=== PATIENT | female | born 1995 | race Caucasian/White ===

== ENCOUNTER 2017-08-17 17:14 | Inpatient (IN) | payer OTHER ==
[2017-08-17 20:19] VITALS: BMI 24.2
--- NOTE | 2017-08-17 21:07 | HP ---
CIWA Score - CIWA Score Nausea/Vomitin Muscle Tremors: 2 Anxiety: 2 Agitation: 2 Paroxysmal Sweats: 2 Orientation: 1-Uncertain about Date Tacttile Disturbances: 0-None Auditory Disturbances: 0-None Visual Disturbances: 0-None Headache: 2-Mild CIWA-Ar Total Score: 13 Admission ROS S - HPI Chief Complaint: "I need help, I need to go to detox and I want to go to rehab" Allergies/Adverse Reactions: Allergies Allergy/AdvReac Type Severity Reaction Status Date / Time cortisone Allergy Severe Low Blood Verified 08/17/17 20:17 Pressure erythromycin base Allergy Severe Rash Verified 08/17/17 20:17 gluten Allergy Severe Verified 08/17/17 20:17 History of Present Illness: 22 yo with hx of cocaine, nicotine, heroin and alcohol dependence is here seeking. Currently on MMTP at [facility] on 60 mg, last medicated this morning. PMHX: Sjogren's Syndrome, asthma, celiac disease, anxiety, depression. Denies suicidal / homicidal ideation or suicide attempts. Last detox [facility] in [place] June 2017. Reports longest period of sobriety 1.5 years. Denies hx of seizures or over dose. Reports hx of blackouts, last episode at 19 yo. Exam Limitations: No Limitations - Ebola screening Have you been sick,other than usual withdrawal symptoms: No Do you have a fever: No - Review of Systems Constitutional: Chills, Unintentional Wgt. Loss (40 lbs in the past 6 months) EENT: reports: No Symptoms Reported Respiratory: reports: No Symptoms reported, Wheezing (at night) GI: reports: Constipated, Nausea, Poor Appetite, Poor Fluid Intake, Abdominal cramping : reports: No Symptoms Reported Musculoskeletal: reports: Back Pain, Joint Pain Integumentary: reports: No Symptoms Reported Neuro: reports: Headache, Weakness Endocrine: reports: Increased Thirst, Change in Weight Hematology: reports: No Symptoms Reported Psychiatric: reports: Orientated x3, Anxious Other Systems: Reviewed and Negative Patient History - Patient Medical History Hx Anemia: No Hx Asthma: Yes Hx Chronic Obstructive Pulmonary Disease (COPD): No Hx Cancer: No Hx Cardiac Disorders: No Hx Congestive Heart Failure: No Hx Hypertension: No Hx Hypercholesterolemia: No Hx Pacemaker: No HX Cerebrovascular Accident: No Hx Seizures: No Hx Dementia: No Hx Diabetes: No Hx Gastrointestinal Disorders: No Hx Genitourinary Disorders: No Hx Sexually Transmitted Disorders: No Hx Renal Disease (ESRD): No Hx Thyroid Disease: No Hx Human Immunodeficiency Virus (HIV): No (last tested 2016, negative ) Hx Hepatitis C: No Hx Depression: Yes Hx Suicide Attempt: No Hx Bipolar Disorder: No Hx Schizophrenia: No - Patient Surgical History Past Surgical History: Yes Hx Neurologic Surgery: No Hx Cataract Extraction: No Hx Cardiac Surgery: No Hx Lung Surgery: No Hx Breast Surgery: No Hx Breast Biopsy: No Hx Abdominal Surgery: No Hx Appendectomy: No Hx Cholecystectomy: No Hx Genitourinary Surgery: No Hx Section: No Hx Orthopedic Surgery: No Other Surgical History: toncillectomy Anesthesia Reaction: No - PPD History Previous Implant?: Yes Documented Results: Negative w/o proof PPD to be Administered?: Yes - Reproductive History Patient is a Female of Child Bearing Age (11 -55 yrs old): Yes - Smoking Cessation Smoking history: Current every day smoker Have you smoked in the past 12 months: Yes Aproximately how many cigarettes per day: 20 Hx Chewing Tobacco Use: No Initiated information on smoking cessation: Yes 'Breaking Loose' booklet given: 08/17/17 - Substance & Tx. History Hx Alcohol Use: Yes Hx Substance Use: Yes Substance Use Type: Alcohol, Cocaine, Heroin Hx Substance Use Treatment: Yes ([facility] June 2017.) - Substances Abused Alcohol Route: Oral Frequency: Daily Amount used: liquor- 2 pints Age of first use: 16 Date of Last Use: 08/16/17 Family Disease History - Family Disease History Family Disease History: Heart Disease: Father (alive, alcoholism, ND), Other: Father, Mother (alive, RA ) Admission Physical Exam BHS - Vital Signs Vital Signs: Vital Signs - 24 hr 08/17/17 20:15 Temperature 97.6 F Pulse Rate 94 H Respiratory 18 Rate Blood Pressure 113/60 - Physical General Appearance: Yes: Appropriately Dressed, Thin, Anxious HEENTM: Yes: EOMI, Hearing grossly Normal, Normal ENT Inspection, Normocephalic , Normal Voice, REYNA, Pharynx Normal, Tm's normal Respiratory: Yes: Chest Non-Tender, Lungs Clear, No Respiratory Distress, No Accessory Muscle Use, Wheezing Neck: Yes: No masses,lesions,Nodules, Trachea in good position Breast: Yes: Breast Exam Deferred Cardiology: Yes: Regular Rhythm, Regular Rate Abdominal: Yes: Normal Bowel Sounds, Non Tender, Flat, Soft Genitourinary: Yes: Within Normal Limits Back: Yes: Normal Inspection Musculoskeletal: Yes: full range of Motion, Gait Steady, Pelvis Stable, Back pain Extremities: Yes: Normal Capillary Refill, Normal Inspection, Normal Range of Motion, Non-Tender Neurological: Yes: powder nipper II-XII NML intact, Fully Oriented, Motor Strength 5/5, Depressed Affect Integumentary: Yes: Within Normal Limits, Normal Color, Warm, Moist Lymphatic: Yes: Within Normal Limits - Diagnostic (1) Depressed affect Current Visit: Yes Status: Acute (2) Alcohol dependence with withdrawal Current Visit: Yes Status: Acute Qualifiers: Complication of substance-induced condition: uncomplicated Qualified Code(s ): F10.230 - Alcohol dependence with withdrawal, uncomplicated (3) Celiac disease Current Visit: Yes Status: Chronic (4) Weight loss Current Visit: Yes Status: Acute (5) Methadone maintenance therapy patient Current Visit: Yes Status: Chronic Comment: Currently on 60 mg, dose pending verification (6) Cocaine dependence Current Visit: Yes Status: Acute Qualifiers: Substance use status: uncomplicated Qualified Code(s): F14.20 - Cocaine dependence, uncomplicated (7) Asthma Current Visit: Yes Status: Chronic Qualifiers: Asthma severity: moderate Asthma persistence: unspecified Asthma complication type: unspecified Qualified Code(s): J45.909 - Unspecified asthma , uncomplicated (8) Sjoegren syndrome Current Visit: Yes Status: Chronic Qualifiers: Sjogren's organ involvement: unspecified organ involvement Qualified Code(s ): M35.00 - Sicca syndrome, unspecified (9) Nicotine dependence Current Visit: Yes Status: Acute Qualifiers: Nicotine product type: cigarettes (10) Wheezing Current Visit: Yes Status: Acute Cleared for Admission S - Detox or Rehab [facility] Level of Care: Medically Managed Detox Regimen/Protocol: Librium [facility] Breath Alcohol Content Breath Alcohol Content: 0 Urine Pregancy Test - Result Urine Test Results: Negative- NO Line Present Urine Drug Screen - Results Drug Screen Negative: No Urine Drug Screen Results: ALEXA-Cocaine, OPI-Opiates, MTD-Methadone
[2017-08-17] MEDS ORDERED: MENTHOL/PHENOL 1 EACH UD MM PRN (21:19)
[2017-08-17] MEDS ORDERED: IBUPROFEN 400 MG TABLET (FP) PO PRN (21:19)
[2017-08-17] MEDS ORDERED: MAG HYDROX/AL HYDROX/SIMETH 30 ML UNIT-DOSE CUP PO PRN (21:19)
[2017-08-17] MEDS ORDERED: guaiFENesin/D-METHORPHAN HB 10 ML UNIT-DOSE CUPS PO PRN (21:19)
[2017-08-17] MEDS ORDERED: chlordiazePOXIDE HCL 25 MG CAPSULE PO ONE (21:19)
[2017-08-17] MEDS ORDERED: MAGNESIUM CITRATE 300 ML BOTTLE PO PRN (21:19)
[2017-08-17] MEDS ORDERED: ACETAMINOPHEN 325 MG TABLET (FP) PO PRN (21:19)
[2017-08-17] MEDS ORDERED: NICOTINE POLACRILEX 2 MG GUM BUC PRN (21:19)
[2017-08-17] MEDS ORDERED: P-EPHED 60MG/TRIPROLIDI 2.5MG TABLET PO PRN (21:19)
[2017-08-17] MEDS ORDERED: LOPERAMIDE HCL 2 MG CAPSULE PO PRN (21:19)
[2017-08-17] MEDS ORDERED: hydrOXYzine PAMOATE 50 MG CAPSULE (FP) PO PRN (21:19)
[2017-08-17] MEDS ORDERED: MAGNESIUM HYDROX 2400MG/30ML ORAL SUSPENSION 30 ML CUP PO PRN (21:19)
[2017-08-17] MEDS ORDERED: ALBUTEROL SO4 2.5/IPRATROPIUM 0.5 INH SOL 3 ML VIAL.NEB. NEB PRN (21:24)
[2017-08-17] MEDS ORDERED: ALBUTEROL SO4 18 GM HFA INHALER IH PRN (21:24)
[2017-08-17] MEDS: THIAMINE HCL 100 MG TABLET (FP) PO SCH (22:32)
[2017-08-17] MEDS: MELATONIN 5 MG TABLETS PO PRN (22:32)
[2017-08-17] MEDS: chlordiazePOXIDE HCL 25 MG CAPSULE PO SCH (22:32)
[2017-08-18] MEDS: chlordiazePOXIDE HCL 25 MG CAPSULE PO SCH ×4 (05:40→22:30)
[2017-08-18] MEDS ORDERED: METHADONE HCL 40 MG DISPERSABLE TABLET PO SCH (07:15)
[2017-08-18] MEDS ORDERED: METHADONE HCL 10 MG TABLET ONE (08:48)
[2017-08-18] MEDS ORDERED: METHADONE HCL 40 MG DISPERSABLE TABLET ONE (08:48)
[2017-08-18 08:51] LABS: URINE APPEARANCE TURBID; URINE BILIRUBIN NEGATIVE (<2.0 mg/dL); URINE BLOOD NEGATIVE (NEGATIVE); URINE COLOR YELLOW; URINE GLUCOSE (UA) NEGATIVE (NEGATIVE); URINE KETONE NEGATIVE (NEGATIVE); URINE LEUK ESTERASE NEGATIVE (NEGATIVE); URINE NITRITE NEGATIVE (NEGATIVE); URINE PROTEIN NEGATIVE (NEGATIVE)
[2017-08-18] MEDS: METHADONE 40 MG, METHADONE 30 MG PO SCH (08:51)
--- NOTE | 2017-08-18 10:30 | PN ---
S CIWA - CIWA Score Nausea/Vomitin Muscle Tremors: 3 Anxiety: 3 Agitation: 2 Paroxysmal Sweats: 1-Minimal Palms Moist Orientation: 0-Oriented Tacttile Disturbances: 1-Very Mild Itch/Numbness Auditory Disturbances: 1-Very Mild Visual Disturbances: 0-None Headache: 2-Mild CIWA-Ar Total Score: 16 BHS Progress Note (SOAP) Subjective: ALERT,IRRITABLE,ANXIOUS,INTERRUPTED SLEEP,PAIN IN THE BODY Objective: 08/18/17 10:33 Vital Signs Temperature 97.9 F 08/18/17 09:17 Pulse Rate 68 08/18/17 09:17 Respiratory Rate 20 08/18/17 09:17 Blood Pressure 124/53 08/18/17 09:17 O2 Sat by Pulse Oximetry (%) EKG NSR WITH SINUS ARRHYTHMIA NORMAL ECG QT 438/444 08/18/17 10:35 NO CHEST PAIN,NO SOB,NO DIZZINESS 08/18/17 10:35 Laboratory Last Values Urine Color Yellow 08/17/17 22:00 Urine Appearance Turbid 08/17/17 22:00 Urine pH 5.0 (5.0-8.0) 08/17/17 22:00 Ur Specific [place] 1.024 (1.001-1.035) 08/17/17 22:00 Urine Protein Negative (NEGATIVE) 08/17/17 22:00 Urine Glucose (UA) Negative (NEGATIVE) 08/17/17 22:00 Urine Ketones Negative (NEGATIVE) 08/17/17 22:00 Urine Blood Negative (NEGATIVE) 08/17/17 22:00 Urine Nitrite Negative (NEGATIVE) 08/17/17 22:00 Urine Bilirubin Negative (<2.0 mg/dL) 08/17/17 22:00 Urine Urobilinogen 2.0 mg/dL (0.2-1.0) H 08/17/17 22:00 Ur Leukocyte Esterase Negative (NEGATIVE) 08/17/17 22:00 LABS PENDING Assessment: 08/18/17 10:36 WITHDRAWAL SYMPTOM Plan: CONTINUE DETOX
--- NOTE | 2017-08-18 10:36 | CONSULT ---
[facility] Psychiatric Consult - Data Date of interview: 08/18/17 Admission source: [facility] Identifying data: This is 22 years old female, single, unemployed, living with boyfriend, with no psychiatric hospitalization hstory, is here seeking for detoxification, reportes withdrawal symptoms after abusing: ' Alcohol, Opioids, Cocaine, Cannabis and Nicotine Substance Abuse History: Smoking history: Current every day smoker. Have you smoked in the past 12 months: Yes. Aproximately how many cigarettes per day: 20. Hx Chewing Tobacco Use: No. Initiated information on smoking cessation: Yes. 'Breaking Loose' booklet given: 08/17/17. - Substance & Tx. History. Hx Alcohol Use: Yes. Hx Substance Use: Yes. Substance Use Type: Alcohol, Cocaine , Heroin. Hx Substance Use Treatment: Yes ([facility] in [place] June 2017.). - Substances Abused. Alcohol. Route: Oral. Frequency: Daily. Amount used: liquor- 2 pints. Age of first use: 16. Date of Last Use: 08/16/17. Urine Drug Screen Results: ALEXA-Cocaine, OPI-Opiates, MTD-Methadone Medical History: Patient reports Celiac disease history, Weight loss history, Sjoegren syndrom history, MMTP 60mg per day, Asthma Psychiatric History: Reports history of depression, no medications taking prior to admission. Denies suicidal,and homicidal history. Physical/Sexual Abuse/Trauma History: Denies Additional Comment: Urine Drug Screen Results: ALEXA-Cocaine, OPI-Opiates, MTD- Methadone. Observation. Detox Unit Care Protocol Mental Status Exam - Mental Status Exam Alert and Oriented to: Place, Person Cognitive Function: Fair Patient Appearance: Unkempt Mood: Apprehensive Affect: Mood Congruent Patient Behavior: Cooperative Speech Pattern: Appropriate Voice Loudness: Normal Thought Process: Goal Oriented Thought Disorder: Being Controlled Hallucinations: Denies Suicidal Ideation: Denies Homicidal Ideation: Denies Insight/Judgement: Fair Sleep: Difficulty falling asleep Appetite: Weight loss Muscle strength/Tone: Normal Gait/Station: Normal Additional Comments: Observation. Detox Unit Care Protocol Psychiatric Findings - Problem List ([place] 1, 2,3) (1) Opioid dependence Current Visit: Yes Status: Acute (2) Cannabis dependence Current Visit: Yes Status: Acute (3) Drug-induced mood disorder Current Visit: Yes Status: Suspected (4) Alcohol dependence with withdrawal Current Visit: Yes Status: Acute Qualifiers: Complication of substance-induced condition: uncomplicated Qualified Code(s ): F10.230 - Alcohol dependence with withdrawal, uncomplicated (5) Cocaine dependence Current Visit: Yes Status: Acute Qualifiers: Substance use status: uncomplicated Qualified Code(s): F14.20 - Cocaine dependence, uncomplicated (6) Nicotine dependence Current Visit: Yes Status: Acute Qualifiers: Nicotine product type: cigarettes (7) Weight loss Current Visit: Yes Status: Acute (8) Methadone maintenance therapy patient Current Visit: Yes Status: Chronic Comment: Currently on 60 mg, dose pending verification - Initial Treatment Plan Initial Treatment Plan: Observation. Detox Unit Care Protocol
[2017-08-18] MEDS: PRENATAL VITAMINS W/ FOLIC ACID TABLET (FP) PO SCH (10:38)
[2017-08-18] MEDS: NICOTINE 21 MG/24 HOURS TOPICAL PATCH TD SCH (10:43)
[2017-08-18 10:44] LABS: HEMATOCRIT 39.7 % (32.4-45.2); HEMOGLOBIN 13.1 GM/dL (10.7-15.3); MCH 30.1 pg (25.7-33.7); MEAN CELL VOLUME 91.4 fl (80-96); MEAN PLT VOLUME 9.4 fl (7.5-11.1); PLATELET COUNT 372 K/MM3 (134-434); RBC 4.34 M/mm3 (3.60-5.2); RDW 13.7 % (11.6-15.6); WHITE BLOOD COUNT 6.9 K/mm3 (4.0-10.0)
--- NOTE | 2017-08-18 10:53 | EKG ---
Test Reason : Blood Pressure : / mmHG Vent. Rate : 062 BPM Atrial Rate : 062 BPM P-R Int : 142 ms QRS Dur : 092 ms QT Int : 438 ms P-R-T Axes : 013 077 070 degrees QTc Int : 444 ms NORMAL SINUS RHYTHM WITH SINUS ARRHYTHMIA NORMAL ECG NO PREVIOUS ECGS AVAILABLE Confirmed by NÉSTOR GAO MD ([id number]) on 08/18/2017 10:53:15 AM Referred By: Confirmed By:NÉSTOR GAO MD
[2017-08-18 11:01] LABS: ALBUMIN 2.9 g/dl (3.4-5.0); ANION GAP 5 (8-16); BLOOD UREA NITROGEN 15 mg/dL (7-18); CALCIUM 8.5 mg/dL (8.5-10.1); CHLORIDE 108 mmol/L (98-107); CO2 28 mmol/L (21-32); CREATININE 0.8 mg/dL (0.55-1.02); GLUCOSE,RANDOM 84 mg/dL (74-106); POTASSIUM 4.2 mmol/L (3.5-5.1); SGOT/AST 11 U/L (15-37); SGPT/ALT 11 U/L (12-78); SODIUM 141 mmol/L (136-145)
[2017-08-18 11:03] LABS: ALK PHOS 60 U/L (45-117); TOT PROT 6.3 g/dl (6.4-8.2)
[2017-08-18 11:31] LABS: BILIRUBIN,TOTAL < 0.1 mg/dL (0.2-1.0)
[2017-08-18] MEDS: chlordiazePOXIDE HCL 25 MG CAPSULE PO PRN (12:43)
--- NOTE | 2017-08-18 15:38 | EKG ---
Test Reason : Blood Pressure : / mmHG Vent. Rate : 060 BPM Atrial Rate : 060 BPM P-R Int : 140 ms QRS Dur : 084 ms QT Int : 432 ms P-R-T Axes : 078 073 064 degrees QTc Int : 432 ms NORMAL SINUS RHYTHM WITH SINUS ARRHYTHMIA NORMAL ECG WHEN COMPARED WITH ECG OF 17-AUG-2017 22:14, NO SIGNIFICANT CHANGE WAS FOUND Confirmed by NÉSTOR GAO MD ([id number]) on 08/18/2017 3:37:36 PM Referred By: Confirmed By:NÉSTOR GAO MD
[2017-08-18] MEDS: THIAMINE HCL 100 MG TABLET (FP) PO SCH (22:30)
[2017-08-19] MEDS ORDERED: METHADONE HCL 10 MG TABLET ONE (04:58)
[2017-08-19] MEDS ORDERED: METHADONE HCL 40 MG DISPERSABLE TABLET ONE (04:58)
[2017-08-19] MEDS: METHADONE 40 MG, METHADONE 30 MG PO SCH (05:31)
[2017-08-19] MEDS: chlordiazePOXIDE HCL 25 MG CAPSULE PO SCH ×3 (05:31→17:42)
[2017-08-19] MEDS: PRENATAL VITAMINS W/ FOLIC ACID TABLET (FP) PO SCH (10:43)
[2017-08-19] MEDS: NICOTINE 21 MG/24 HOURS TOPICAL PATCH TD SCH (10:44)
--- NOTE | 2017-08-19 12:03 | PN ---
BHS CIWA - CIWA Score Nausea/Vomitin Muscle Tremors: 3 Anxiety: 3 Paroxysmal Sweats: 1-Minimal Palms Moist Orientation: 0-Oriented Tacttile Disturbances: 1-Very Mild Itch/Numbness Auditory Disturbances: 1-Very Mild Visual Disturbances: 0-None Headache: 2-Mild BHS Progress Note (SOAP) Subjective: ALERT,IRRITABLE,ANXIOUS,INTERRUPTED SLEEP,PAIN IN THE BODY AND BACK Objective: 08/19/17 12:02 Vital Signs Temperature 97.9 F 08/19/17 10:14 Pulse Rate 66 08/19/17 10:14 Respiratory Rate 18 08/19/17 10:14 Blood Pressure 115/49 08/19/17 10:14 O2 Sat by Pulse Oximetry (%) 08/19/17 12:02 Laboratory Last Values WBC 6.9 K/mm3 (4.0-10.0) D 08/18/17 07:00 RBC 4.34 M/mm3 (3.60-5.2) 08/18/17 07:00 Hgb 13.1 GM/dL (10.7-15.3) 08/18/17 07:00 Hct 39.7 % (32.4-45.2) 08/18/17 07:00 MCV 91.4 fl (80-96) 08/18/17 07:00 MCH 30.1 pg (25.7-33.7) 08/18/17 07:00 MCHC 33.0 g/dl (32.0-36.0) 08/18/17 07:00 RDW 13.7 % (11.6-15.6) 08/18/17 07:00 Plt Count 372 K/MM3 (134-434) 08/18/17 07:00 MPV 9.4 fl (7.5-11.1) 08/18/17 07:00 Sodium 141 mmol/L (136-145) 08/18/17 07:00 Potassium 4.2 mmol/L (3.5-5.1) 08/18/17 07:00 Chloride 108 mmol/L (98-107) H 08/18/17 07:00 Carbon Dioxide 28 mmol/L (21-32) 08/18/17 07:00 Anion Gap 5 (8-16) L 08/18/17 07:00 BUN 15 mg/dL (7-18) 08/18/17 07:00 Creatinine 0.8 mg/dL (0.55-1.02) 08/18/17 07:00 Creat Clearance w eGFR > 60 (>60) 08/18/17 07:00 Random Glucose 84 mg/dL (74-106) 08/18/17 07:00 Calcium 8.5 mg/dL (8.5-10.1) 08/18/17 07:00 Total Bilirubin < 0.1 mg/dL (0.2-1.0) L D 08/18/17 07:00 AST 11 U/L (15-37) L 08/18/17 07:00 ALT 11 U/L (12-78) L 08/18/17 07:00 Alkaline Phosphatase 60 U/L (45-117) 08/18/17 07:00 Total Protein 6.3 g/dl (6.4-8.2) L 08/18/17 07:00 Albumin 2.9 g/dl (3.4-5.0) L 08/18/17 07:00 Urine Color Yellow 08/17/17 22:00 Urine Appearance Turbid 08/17/17 22:00 Urine pH 5.0 (5.0-8.0) 08/17/17 22:00 Ur Specific [place] 1.024 (1.001-1.035) 08/17/17 22:00 Urine Protein Negative (NEGATIVE) 08/17/17 22:00 Urine Glucose (UA) Negative (NEGATIVE) 08/17/17 22:00 Urine Ketones Negative (NEGATIVE) 08/17/17 22:00 Urine Blood Negative (NEGATIVE) 08/17/17 22:00 Urine Nitrite Negative (NEGATIVE) 08/17/17 22:00 Urine Bilirubin Negative (<2.0 mg/dL) 08/17/17 22:00 Urine Urobilinogen 2.0 mg/dL (0.2-1.0) H 08/17/17 22:00 Ur Leukocyte Esterase Negative (NEGATIVE) 08/17/17 22:00 RPR PENDING Assessment: 08/19/17 12:03 WITHDRAWAL SYMPTOM Plan: CONTINUE DETOX
[2017-08-19] MEDS: chlordiazePOXIDE HCL 25 MG CAPSULE PO PRN ×2 (12:32→19:45)
[2017-08-19] MEDS: THIAMINE HCL 100 MG TABLET (FP) PO SCH (22:20)
[2017-08-19] MEDS: chlordiazePOXIDE 5 MG CAPSULE PO SCH (22:20)
[2017-08-19] MEDS: MELATONIN 5 MG TABLETS PO PRN (22:20)
[2017-08-20] MEDS ORDERED: METHADONE HCL 10 MG TABLET ONE (05:01)
[2017-08-20] MEDS ORDERED: METHADONE HCL 40 MG DISPERSABLE TABLET ONE (05:01)
[2017-08-20] MEDS: chlordiazePOXIDE 5 MG CAPSULE PO SCH ×3 (05:33→17:55)
[2017-08-20] MEDS: METHADONE 40 MG, METHADONE 30 MG PO SCH (05:33)
--- NOTE | 2017-08-20 10:52 | PN ---
S Progress Note (SOAP) Subjective: ALERT,IRRITABLE,ANXIOUS,INTERRUPTED SLEEP Objective: 08/20/17 10:51 Vital Signs Temperature 97.0 F L 08/20/17 09:57 Pulse Rate 65 08/20/17 09:57 Respiratory Rate 16 08/20/17 09:57 Blood Pressure 109/60 08/20/17 09:57 O2 Sat by Pulse Oximetry (%) Assessment: 08/20/17 10:51 WITHDRAWAL SYMPTOM Plan: CONTINUE DETOX,DISCHARGE IN AM
[2017-08-20] MEDS: PRENATAL VITAMINS W/ FOLIC ACID TABLET (FP) PO SCH (11:06)
[2017-08-20] MEDS: NICOTINE 21 MG/24 HOURS TOPICAL PATCH TD SCH (11:07)
[2017-08-20] MEDS: chlordiazePOXIDE HCL 25 MG CAPSULE PO PRN (12:31)
[2017-08-20] MEDS: chlordiazePOXIDE HCL 10 MG CAPSULE PO SCH (22:40)
[2017-08-20] MEDS: THIAMINE HCL 100 MG TABLET (FP) PO SCH (22:40)
[2017-08-21] MEDS: chlordiazePOXIDE HCL 10 MG CAPSULE PO SCH (05:42)
[2017-08-21 06:52] VITALS: BP 110/55
[2017-08-21] MEDS ORDERED: METHADONE HCL 40 MG DISPERSABLE TABLET PO SCH (07:30)
--- NOTE | 2017-08-21 09:40 | PN ---
S Progress Note (SOAP) Subjective: ALERT,NO COMPLAINT Objective: 08/21/17 09:39 Vital Signs Temperature 97.5 F L 08/21/17 06:52 Pulse Rate 64 08/21/17 06:52 Respiratory Rate 18 08/21/17 06:52 Blood Pressure 110/55 08/21/17 06:52 O2 Sat by Pulse Oximetry (%) Assessment: 08/21/17 09:39 DETOX COMPLETED,NO WITHDRAWAL SYMPTOM Plan: DISCHARGE TODAY,FOLLOW UP WITH AFTER CARE PROGRAM ARRANGEMENT
--- NOTE | 2017-08-21 09:44 | DS ---
[facility] Detox Discharge Summary Admission Date: 08/17/17 Discharge Date: 08/21/17 - History Present History: Alcohol Dependence, Cocaine Dependence, MMTP Additional Comments: FOLLOW UP WITH AFTER CARE PROGRAM ARRANGEMENT Pertinent Past History: ASTHMA SJOEGREN SYNDROME NICOTINE DEPENDENCE - Physical Exam Results Vital Signs: Vital Signs Temperature 97.5 F L 08/21/17 06:52 Pulse Rate 64 08/21/17 06:52 Respiratory Rate 18 08/21/17 06:52 Blood Pressure 110/55 08/21/17 06:52 O2 Sat by Pulse Oximetry (%) Pertinent Admission Physical Exam Findings: WITHDRAWAL SIGNS AND SYMPTOM Laboratory Last Values WBC 6.9 K/mm3 (4.0-10.0) D 08/18/17 07:00 RBC 4.34 M/mm3 (3.60-5.2) 08/18/17 07:00 Hgb 13.1 GM/dL (10.7-15.3) 08/18/17 07:00 Hct 39.7 % (32.4-45.2) 08/18/17 07:00 MCV 91.4 fl (80-96) 08/18/17 07:00 MCH 30.1 pg (25.7-33.7) 08/18/17 07:00 MCHC 33.0 g/dl (32.0-36.0) 08/18/17 07:00 RDW 13.7 % (11.6-15.6) 08/18/17 07:00 Plt Count 372 K/MM3 (134-434) 08/18/17 07:00 MPV 9.4 fl (7.5-11.1) 08/18/17 07:00 Sodium 141 mmol/L (136-145) 08/18/17 07:00 Potassium 4.2 mmol/L (3.5-5.1) 08/18/17 07:00 Chloride 108 mmol/L (98-107) H 08/18/17 07:00 Carbon Dioxide 28 mmol/L (21-32) 08/18/17 07:00 Anion Gap 5 (8-16) L 08/18/17 07:00 BUN 15 mg/dL (7-18) 08/18/17 07:00 Creatinine 0.8 mg/dL (0.55-1.02) 08/18/17 07:00 Creat Clearance w eGFR > 60 (>60) 08/18/17 07:00 Random Glucose 84 mg/dL (74-106) 08/18/17 07:00 Calcium 8.5 mg/dL (8.5-10.1) 08/18/17 07:00 Total Bilirubin < 0.1 mg/dL (0.2-1.0) L D 08/18/17 07:00 AST 11 U/L (15-37) L 08/18/17 07:00 ALT 11 U/L (12-78) L 08/18/17 07:00 Alkaline Phosphatase 60 U/L (45-117) 08/18/17 07:00 Total Protein 6.3 g/dl (6.4-8.2) L 08/18/17 07:00 Albumin 2.9 g/dl (3.4-5.0) L 08/18/17 07:00 Urine Color Yellow 08/17/17 22:00 Urine Appearance Turbid 08/17/17 22:00 Urine pH 5.0 (5.0-8.0) 08/17/17 22:00 Ur Specific [place] 1.024 (1.001-1.035) 08/17/17 22:00 Urine Protein Negative (NEGATIVE) 08/17/17 22:00 Urine Glucose (UA) Negative (NEGATIVE) 08/17/17 22:00 Urine Ketones Negative (NEGATIVE) 08/17/17 22:00 Urine Blood Negative (NEGATIVE) 08/17/17 22:00 Urine Nitrite Negative (NEGATIVE) 08/17/17 22:00 Urine Bilirubin Negative (<2.0 mg/dL) 08/17/17 22:00 Urine Urobilinogen 2.0 mg/dL (0.2-1.0) H 08/17/17 22:00 Ur Leukocyte Esterase Negative (NEGATIVE) 08/17/17 22:00 RPR Titer Nonreactive (NONREACTIVE) 08/18/17 07:00 Vital Signs Temperature 97.5 F L 08/21/17 06:52 Pulse Rate 64 08/21/17 06:52 Respiratory Rate 18 08/21/17 06:52 Blood Pressure 110/55 08/21/17 06:52 O2 Sat by Pulse Oximetry (%) - Treatment Hospital Course: Detox Protocol Followed, Detoxed Safely, Responded well, Discharged Condition Good, Rehab Referral Accepted Patient has Accepted a Rehab Referral to: [facility] - Medication Discharge Medications: Ambulatory Orders Albuterol Sulfate Inhaler - [Ventolin HFA Inhaler -] 2 puff IH Q6H PRN 08/17/17 - Diagnosis (1) Alcohol dependence with withdrawal Current Visit: Yes Status: Acute Qualifiers: Complication of substance-induced condition: uncomplicated Qualified Code(s ): F10.230 - Alcohol dependence with withdrawal, uncomplicated (2) Cocaine dependence Current Visit: Yes Status: Acute Qualifiers: Substance use status: uncomplicated Qualified Code(s): F14.20 - Cocaine dependence, uncomplicated (3) Nicotine dependence Current Visit: Yes Status: Acute Qualifiers: Nicotine product type: cigarettes (4) Weight loss Current Visit: Yes Status: Acute (5) Asthma Current Visit: Yes Status: Chronic Qualifiers: Asthma severity: moderate Asthma persistence: unspecified Asthma complication type: unspecified Qualified Code(s): J45.909 - Unspecified asthma , uncomplicated (6) Methadone maintenance therapy patient Current Visit: Yes Status: Chronic (7) Sjoegren syndrome Current Visit: Yes Status: Chronic Qualifiers: Sjogren's organ involvement: unspecified organ involvement Qualified Code(s ): M35.00 - Sicca syndrome, unspecified
[2017-08-21 10:46] VITALS: PULSE 85; TEMP 98.1
[2017-08-21] MEDS: NICOTINE 21 MG/24 HOURS TOPICAL PATCH TD SCH (11:03)
[2017-08-21] MEDS: PRENATAL VITAMINS W/ FOLIC ACID TABLET (FP) PO SCH (11:03)
== END 2017-08-21 11:39 | disposition home or self-care (01) | DRG 897 ==
LOC: YASAS 17:14 → Y6N 21:05
PROVIDERS: ADMIT Internal Medicine; ATTEND Internal Medicine
PROC: HZ2ZZZZ Detoxification Services for Substance Abuse Treatment (ICD-10-PCS; principal; 2017-08-17)
DX: F11.20 Opioid dependence, uncomplicated (principal); F10.230 Alcohol dependence with withdrawal, uncomplicated; F14.20 Cocaine dependence, uncomplicated; F12.20 Cannabis dependence, uncomplicated; F17.210 Nicotine dependence, cigarettes, uncomplicated; F32.9 Major depressive disorder, single episode, unspecified; J45.909 Unspecified asthma, uncomplicated; K90.0 Celiac disease; M35.00 Sjogren syndrome, unspecified; R06.02 Shortness of breath; R63.4 Abnormal weight loss; Z68.24 Body mass index [BMI] 24.0-24.9, adult
CPT/HCPCS: 36415; 80053; 81003; 85027; 86593; 93005; 93010; 94640

== ENCOUNTER 2017-08-24 12:08 | Inpatient (IN) | payer OTHER ==
[2017-08-24 13:55] VITALS: BMI 22.6
--- NOTE | 2017-08-24 14:38 | HP ---
[facility] Rehab Assess/Revision - Admission History Admitted to Rehab from: [facility] [address] [place] [address] (08/17/17 TO 08/21/17) Date of Admission to Rehab: 08/24/17 - Vital signs Vital Signs: Vital Signs Period Temp Pulse Resp BP Sys/Kang Pulse Ox Last 24 Hr 96 F 90 20 139/74 - Findings Detox History & Physical reviewed: Yes Concur with findings: Yes Comments/Additional Findings: PT COMPLETED DETOX HERE [facility] ON 08/21/17. RETURNED TODAY FOR AFTERCARE. LUNGS:MILD EXPIRATORY WHEEZE. NO SOB. ALERT O X 3. NAD. ADMIT TO REHAB Inpatient Rehab Admission - Initial Determination Are CD services needed?: Yes Free of communicable disease: Yes Not in need of hospitalization: Yes - Rehab Admission Criteria Patient is meeting Inpatient Rehab admission criteria:: Yes
[2017-08-24] MEDS ORDERED: ACETAMINOPHEN 325 MG TABLET (FP) PO PRN (14:42)
[2017-08-24] MEDS ORDERED: P-EPHED 60MG/TRIPROLIDI 2.5MG TABLET PO PRN (14:42)
[2017-08-24] MEDS ORDERED: guaiFENesin/D-METHORPHAN HB 10 ML UNIT-DOSE CUPS PO PRN (14:42)
[2017-08-24] MEDS ORDERED: MENTHOL/PHENOL 1 EACH UD MM PRN (14:42)
[2017-08-24] MEDS ORDERED: MAG HYDROX/AL HYDROX/SIMETH 30 ML UNIT-DOSE CUP PO PRN (14:42)
[2017-08-24] MEDS ORDERED: LOPERAMIDE HCL 2 MG CAPSULE PO PRN (14:42)
[2017-08-24] MEDS ORDERED: MAGNESIUM CITRATE 300 ML BOTTLE PO PRN (14:42)
[2017-08-24] MEDS ORDERED: IBUPROFEN 400 MG TABLET (FP) PO PRN (14:42)
[2017-08-24] MEDS ORDERED: MAGNESIUM HYDROX 2400MG/30ML ORAL SUSPENSION 30 ML CUP PO PRN (14:42)
[2017-08-24] MEDS ORDERED: ALBUTEROL SO4 18 GM HFA INHALER IH PRN (14:46)
[2017-08-24] MEDS ORDERED: BUDESONIDE/FORMETEROL FUMARATE 160/4.5 mcg INHALER IH PRN (14:46)
[2017-08-24] MEDS ORDERED: ALBUTEROL SO4 2.5/IPRATROPIUM 0.5 INH SOL 3 ML VIAL.NEB. NEB PRN (14:52)
[2017-08-24] MEDS: NICOTINE 21 MG/24 HOURS TOPICAL PATCH TD SCH (19:22)
[2017-08-24] MEDS: THIAMINE HCL 100 MG TABLET (FP) PO SCH (21:50)
[2017-08-24] MEDS ORDERED: MELATONIN 5 MG TABLETS PO PRN (22:00)
[2017-08-25 06:12] LABS: URINE APPEARANCE SLCLOUDY; URINE BILIRUBIN NEGATIVE (<2.0 mg/dL); URINE BLOOD NEGATIVE (NEGATIVE); URINE COLOR YELLOW; URINE GLUCOSE (UA) NEGATIVE (NEGATIVE); URINE KETONE NEGATIVE (NEGATIVE); URINE LEUK ESTERASE NEGATIVE (NEGATIVE); URINE NITRITE NEGATIVE (NEGATIVE); URINE PROTEIN NEGATIVE (NEGATIVE); URINE UROBILINOGEN NEGATIVE mg/dL (0.2-1.0)
[2017-08-25] MEDS: METHADONE HCL 40 MG DISPERSABLE TABLET PO SCH (07:04)
--- NOTE | 2017-08-25 09:28 | EKG ---
Test Reason : Blood Pressure : / mmHG Vent. Rate : 078 BPM Atrial Rate : 078 BPM P-R Int : 140 ms QRS Dur : 084 ms QT Int : 398 ms P-R-T Axes : 073 070 055 degrees QTc Int : 453 ms NORMAL SINUS RHYTHM NORMAL ECG WHEN COMPARED WITH ECG OF 18-AUG-2017 11:00, NO SIGNIFICANT CHANGE WAS FOUND Confirmed by NÉSTOR GAO MD ([id number]) on 08/25/2017 9:27:57 AM Referred By: Confirmed By:NÉSTOR GAO MD
[2017-08-25] MEDS ORDERED: BUDESONIDE/FORMETEROL FUMARATE 160/4.5 mcg INHALER IH SCH (10:00)
[2017-08-25] MEDS: PRENATAL VITAMINS W/ FOLIC ACID TABLET (FP) PO SCH (10:10)
[2017-08-25] MEDS: NICOTINE 21 MG/24 HOURS TOPICAL PATCH TD SCH (10:11)
[2017-08-25] MEDS: NICOTINE POLACRILEX 4 MG GUM BC PRN (10:13)
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
[2017-08-25] MEDS: THIAMINE HCL 100 MG TABLET (FP) PO SCH (21:12)
[2017-08-25] MEDS: hydrOXYzine PAMOATE 50 MG CAPSULE (FP) PO PRN (21:14)
[2017-08-25] MEDS: BUDESONIDE/FORMETEROL FUMARATE 160/4.5 mcg INHALER IH SCH (21:15)
[2017-08-25] MEDS ORDERED: SUVOREXANT 10 MG TABLET PO PRN (22:00)
[2017-08-26] MEDS: METHADONE HCL 40 MG DISPERSABLE TABLET PO SCH (06:50)
[2017-08-26] MEDS: NICOTINE POLACRILEX 4 MG GUM BC PRN ×3 (10:37→18:30)
[2017-08-26] MEDS: NICOTINE 21 MG/24 HOURS TOPICAL PATCH TD SCH (10:37)
[2017-08-26] MEDS: PRENATAL VITAMINS W/ FOLIC ACID TABLET (FP) PO SCH (10:37)
--- NOTE | 2017-08-26 13:55 | PN ---
CHRISTIANO Progress Note Note: Patient reports generalize body ache, and withdrawal symptoms. Reports at the [facility] at [place] her methadone dosages were routinely adjusted to improve her symptoms. Patient requested increase in methadone dose increase from 80 mg. patient reports not feeling well and requested to be excuse today from group activities. Vital Signs Temperature 97.9 F 08/26/17 07:10 Pulse Rate 54 L 08/26/17 07:10 Respiratory Rate 18 08/26/17 07:10 Blood Pressure 100/63 08/26/17 07:10 O2 Sat by Pulse Oximetry (%) Laboratory Last Values Urine Color Yellow 08/24/17 19:57 Urine Appearance Slcloudy 08/24/17 19:57 Urine pH 5.0 (5.0-8.0) 08/24/17 19:57 Ur Specific [place] 1.021 (1.001-1.035) 08/24/17 19:57 Urine Protein Negative (NEGATIVE) 08/24/17 19:57 Urine Glucose (UA) Negative (NEGATIVE) 08/24/17 19:57 Urine Ketones Negative (NEGATIVE) 08/24/17 19:57 Urine Blood Negative (NEGATIVE) 08/24/17 19:57 Urine Nitrite Negative (NEGATIVE) 08/24/17 19:57 Urine Bilirubin Negative (<2.0 mg/dL) 08/24/17 19:57 Urine Urobilinogen Negative mg/dL (0.2-1.0) 08/24/17 19:57 Ur Leukocyte Esterase Negative (NEGATIVE) 08/24/17 19:57 Patient AOX3, in no apparent distress Ambulating in the unit Plan: Increase fluids Patient may be excuse today from group activities and can rest Will discuss request for methadone dose increase with Dr. Stein Continue to monitor
[2017-08-26] MEDS: hydrOXYzine PAMOATE 50 MG CAPSULE (FP) PO PRN ×2 (15:48→21:25)
[2017-08-26] MEDS: BUDESONIDE/FORMETEROL FUMARATE 160/4.5 mcg INHALER IH SCH (21:23)
[2017-08-26] MEDS: THIAMINE HCL 100 MG TABLET (FP) PO SCH (21:24)
[2017-08-27] MEDS: METHADONE HCL 40 MG DISPERSABLE TABLET PO SCH (06:44)
[2017-08-27] MEDS: PRENATAL VITAMINS W/ FOLIC ACID TABLET (FP) PO SCH (09:01)
[2017-08-27] MEDS: NICOTINE 21 MG/24 HOURS TOPICAL PATCH TD SCH (09:02)
[2017-08-27] MEDS: NICOTINE POLACRILEX 4 MG GUM BC PRN ×4 (09:02→17:32)
[2017-08-27] MEDS ORDERED: QUEtiapine FUMARATE 50 MG TABLET PO PRN (14:14)
--- NOTE | 2017-08-27 14:16 | PN ---
Psychiatric Progress Note Vital Signs: Vital Signs Period Temp Pulse Resp BP Sys/Kang Pulse Ox Last 24 Hr 97.7 F 50 16-18 92/58 Date of Session: 08/27/17 Chief Complaint:: "anxious, restless" HPI: Patient is addressing ROS: bronchial asthma, sjogren's syndrome, celiac disease and history of tonsillectomy. Current Medications: Active Medications Generic Name Dose Route Start Last Admin Trade Name Freq PRN Reason Stop Dose Admin Acetaminophen 650 mg 08/24/17 14:42 Tylenol - PO Q4H PRN FEVER Al Hydroxide/Mg Hydroxide 30 ml 08/24/17 14:42 Mylanta Oral Suspension - PO Q6H PRN DYSPEPSIA Albuterol Sulfate 2 puff 08/24/17 14:46 08/25/17 07:07 Ventolin Hfa Inhaler - IH 2 inh Q4H PRN Administration ASTHMA Albuterol/Ipratropium 1 amp 08/24/17 14:52 Duoneb - NEB Q4H PRN SHORT OF BREATH/WHEEZING Budesonide/Formoterol Fumarate 1 puff 08/25/17 22:00 08/26/17 21:23 Symbicort 160/4.5mcg - IH 1 puff DAILY@2200 ERIC Administration Eucalyptus/Menthol/Phenol/Sorbitol 1 each 08/24/17 14:42 Cepastat Lozenge - MM Q4H PRN SORE THROAT Guaifenesin 10 ml 08/24/17 14:42 Robitussin Dm - PO Q6H PRN COUGH Hydroxyzine Pamoate 50 mg 08/25/17 13:37 08/26/17 21:25 Vistaril - PO 50 mg Q4H PRN Administration ANXIETY Ibuprofen 400 mg 08/24/17 14:42 Motrin - PO Q6H PRN Pain level 4-6 Loperamide HCl 4 mg 08/24/17 14:42 Imodium - PO Q6H PRN DIARRHEA Magnesium Citrate 300 ml 08/24/17 14:42 Citroma - PO Q48H PRN CONSTIPATION Magnesium Hydroxide 30 ml 08/24/17 14:42 Milk Of Magnesia - PO DAILY PRN CONSTIPATION Melatonin 5 mg 08/24/17 22:00 Melatonin PO HS PRN INSOMNIA Methadone HCl 80 mg 08/25/17 06:30 08/27/17 06:44 Dolophine - PO 80 mg DAILY@0600 ERIC Administration Nicotine 21 mg 08/24/17 14:45 08/27/17 09:02 Nicoderm Patch - TD 21 mg DAILY ERIC Administration Nicotine Polacrilex 4 mg 08/24/17 14:42 08/27/17 13:02 Nicorette Gum - BC 4 mg Q2H PRN Administration NICOTINE REPLACEMENT RX Multivit/Folic Acid/Iron 1 tab 08/25/17 10:00 08/27/17 09:01 Vitamins (Sjr) - PO 1 tab DAILY ERIC Administration Pseudoephedrine/Triprolidine 1 combo 08/24/17 14:42 Actifed - PO TID PRN NASAL CONGESTION Suvorexant 10 mg 08/25/17 22:00 Belsomra PO 08/28/17 21:59 HS PRN INSOMNIA Thiamine HCl 100 mg 08/24/17 22:00 08/26/17 21:24 Vitamin B1 - PO 100 mg HS ERIC Administration Medication(s) Change(s): Seroquel 50 mg po q 8 hr PRN. Current Side Effect: No Lab tests ordered: No Lab tests reviewed: Yes Provider note:: Reviewed the chart, admission notes appreciated, met with the patient, who c/o anxiety, restlessness at times, asking to get PRN seroquel, patient treated in the past with Zoloft, Seroquel, Prozac, Wellbutrin , Effexor, Lexapro, Depakote etc., off medications for the past 2 years. Discussed indications and properties of Seroquel, will add 50 mg po as PRN, monitor progress as needed. Total face to face time:: 15 Mental Status Exam - Mental Status Exam Alert and Oriented to: Time, Place, Person Cognitive Function: Good Patient Appearance: Well Groomed Mood: Sad, Anxious Affect: Appropriate, Mood Congruent Patient Behavior: Appropriate, Cooperative Speech Pattern: Clear, Appropriate Voice Loudness: Normal Thought Process: Intact, Goal Oriented Thought Disorder: Not Present Hallucinations: Denies Suicidal Ideation: Denies Homicidal Ideation: Denies Insight/Judgement: Fair Sleep: Fair Appetite: Fair Muscle strength/Tone: Normal Gait/Station: Normal Psychiatric Treatment Plan - Problem List (1) Alcohol dependence Current Visit: Yes (2) Cocaine dependence Current Visit: Yes (3) Opioid dependence Current Visit: Yes (4) Substance induced mood disorder Current Visit: Yes (5) Substance-induced sleep disorder Current Visit: Yes (6) Asthma Current Visit: Yes Qualifiers: Asthma severity: mild Asthma persistence: unspecified Asthma complication type: unspecified Qualified Code(s): J45.998 - Other asthma (7) Celiac disease Current Visit: Yes (8) Cocaine dependence Current Visit: Yes Qualifiers: Substance use status: uncomplicated (9) MDD (major depressive disorder), recurrent episode Current Visit: Yes (10) Methadone maintenance therapy patient Current Visit: Yes Comment: Currently on 60 mg, dose pending verification (11) Nicotine dependence Current Visit: Yes Qualifiers: Nicotine product type: cigarettes Substance use status: in withdrawal Qualified Code(s): F17.213 - Nicotine dependence, cigarettes, with withdrawal (12) Opioid dependence on agonist therapy Current Visit: Yes (13) Sjoegren syndrome Current Visit: Yes Qualifiers:
--- NOTE | 2017-08-27 16:42 | PN ---
[facility] Progress Note Note: patient requesting increase in methadone dose to 90mg daily, was admitted 08/24 on 80mg daily but still reports cravings and desire to use. utox on admission was +ve for opiates andmethadone indicating ongoing heorin use when admitted and an inadequate dose of methadone. juan pablo give 10mg x1 dose now and start on 90mg daily in AM. Reassess for adequacy of methadone dose next week after it stabilizes can go up another 10mg in 5 days if still having cravings while in rehab.
[2017-08-27] MEDS ORDERED: METHADONE HCL 10 MG TABLET PO ONE (17:30)
[2017-08-27] MEDS: THIAMINE HCL 100 MG TABLET (FP) PO SCH (21:22)
[2017-08-27] MEDS: BUDESONIDE/FORMETEROL FUMARATE 160/4.5 mcg INHALER IH SCH (21:22)
[2017-08-27] MEDS: hydrOXYzine PAMOATE 50 MG CAPSULE (FP) PO PRN (21:22)
[2017-08-28] MEDS ORDERED: METHADONE HCL 10 MG TABLET PO SCH (06:00)
[2017-08-28] MEDS ORDERED: METHADONE HCL 10 MG TABLET ONE (06:15)
[2017-08-28] MEDS ORDERED: METHADONE HCL 40 MG DISPERSABLE TABLET ONE (06:16)
[2017-08-28] MEDS: METHADONE HCL 40 MG DISPERSABLE TABLET PO SCH (06:36)
[2017-08-28] MEDS: METHADONE 80 MG, METHADONE 10 MG PO SCH (06:36)
[2017-08-28] MEDS: PRENATAL VITAMINS W/ FOLIC ACID TABLET (FP) PO SCH (10:05)
[2017-08-28] MEDS: NICOTINE 21 MG/24 HOURS TOPICAL PATCH TD SCH ×2 (10:05→10:56)
[2017-08-28] MEDS: NICOTINE POLACRILEX 4 MG GUM BC PRN ×4 (10:06→21:16)
[2017-08-28] MEDS ORDERED: PT OWN MED DRAWER 7, Y5N ONE (21:14)
[2017-08-28] MEDS: THIAMINE HCL 100 MG TABLET (FP) PO SCH (21:15)
[2017-08-28] MEDS: BUDESONIDE/FORMETEROL FUMARATE 160/4.5 mcg INHALER IH SCH (21:15)
[2017-08-28] MEDS: hydrOXYzine PAMOATE 50 MG CAPSULE (FP) PO PRN (21:15)
[2017-08-29] MEDS ORDERED: METHADONE HCL 40 MG DISPERSABLE TABLET ONE (03:13)
[2017-08-29] MEDS ORDERED: METHADONE HCL 10 MG TABLET ONE (03:13)
[2017-08-29] MEDS: METHADONE 80 MG, METHADONE 10 MG PO SCH (06:09)
[2017-08-29] MEDS: METHADONE HCL 40 MG DISPERSABLE TABLET PO SCH (06:11)
[2017-08-29 06:48] VITALS: TEMP 97.9
[2017-08-29] MEDS: NICOTINE POLACRILEX 4 MG GUM BC PRN ×4 (08:25→20:43)
[2017-08-29] MEDS: NICOTINE 21 MG/24 HOURS TOPICAL PATCH TD SCH (09:00)
[2017-08-29] MEDS: PRENATAL VITAMINS W/ FOLIC ACID TABLET (FP) PO SCH (09:00)
[2017-08-29] MEDS ORDERED: PT OWN MED DRAWER 7, Y5N ONE (20:06)
[2017-08-29] MEDS: BUDESONIDE/FORMETEROL FUMARATE 160/4.5 mcg INHALER IH SCH (21:12)
[2017-08-29] MEDS: THIAMINE HCL 100 MG TABLET (FP) PO SCH (21:12)
[2017-08-29] MEDS: hydrOXYzine PAMOATE 50 MG CAPSULE (FP) PO PRN (21:13)
[2017-08-30] MEDS ORDERED: METHADONE HCL 10 MG TABLET ONE (03:22)
[2017-08-30] MEDS ORDERED: METHADONE HCL 40 MG DISPERSABLE TABLET ONE (03:22)
[2017-08-30] MEDS: METHADONE HCL 40 MG DISPERSABLE TABLET PO SCH (06:34)
[2017-08-30] MEDS: METHADONE 80 MG, METHADONE 10 MG PO SCH (06:34)
[2017-08-30 06:59] VITALS: BP 104/66; PULSE 64
[2017-08-30] MEDS: PRENATAL VITAMINS W/ FOLIC ACID TABLET (FP) PO SCH (09:55)
[2017-08-30] MEDS: NICOTINE 21 MG/24 HOURS TOPICAL PATCH TD SCH (09:56)
[2017-08-30] MEDS: NICOTINE POLACRILEX 4 MG GUM BC PRN ×2 (09:56→12:42)
--- NOTE | 2017-08-30 12:15 | PN ---
S Progress Note Note: Called by nursing staff requesting a discharge order for patient who is leaving before completing the program due to insurance issue. According to nursing staff , she was stable on discharge. Refer to addiction counselor's note for referral information
[2017-08-30] MEDS ORDERED: PT OWN MED DRAWER 7, Y5N ONE (12:32)
== END 2017-08-30 12:50 | disposition home or self-care (01) | DRG 895 ==
LOC: YASAS 12:08 → Y3E 15:36
PROVIDERS: ADMIT Psychiatry & Neurology Psychiatry; ATTEND Psychiatry & Neurology Psychiatry
PROC: HZ42ZZZ Group Counseling for Substance Abuse Treatment, Cognitive-Behavioral (ICD-10-PCS; principal; 2017-08-24)
DX: F11.20 Opioid dependence, uncomplicated (principal); F14.20 Cocaine dependence, uncomplicated; F33.9 Major depressive disorder, recurrent, unspecified; F19.282 Other psychoactive substance dependence with psychoactive substance-induced sleep disorder; F10.20 Alcohol dependence, uncomplicated; F17.210 Nicotine dependence, cigarettes, uncomplicated; F19.24 Other psychoactive substance dependence with psychoactive substance-induced mood disorder; K90.0 Celiac disease; M35.00 Sjogren syndrome, unspecified; R63.4 Abnormal weight loss; Z68.22 Body mass index [BMI] 22.0-22.9, adult; Z88.8 Allergy status to other drugs, medicaments and biological substances; Z91.018 Allergy to other foods
CPT/HCPCS: 81003; 93005; 93010